=== PATIENT | male | born 1965 | race Two or more races ===

== ENCOUNTER 2016-11-06 22:12 | Emergency (ER) | payer OTHER ==
[~2016-11-06] VITALS: Ht 172.7 cm; Wt 124.7 kg
[2016-11-06] MEDS ORDERED: ATENOLOL25 MG ORAL (22:20)
[2016-11-06] MEDS ORDERED: ATORVASTATIN CA20 MG ORAL (22:20)
[2016-11-06] MEDS ORDERED: METFORMIN HCL500 M1 ORAL (22:21)
[2016-11-06] MEDS ORDERED: GLIMEPIRIDE1 MG ORAL (22:21)
[2016-11-06 22:26] VITALS: BP 162/82
[2016-11-06] MEDS ORDERED: Bactrim DS (160mg/800mg) tab ORAL ONE (22:45)
[2016-11-06] MEDS ORDERED: Norco 5mg/325mg tab ORAL ONE (22:45)
[2016-11-06] MEDS ORDERED: BACTRIM DS TAB1 EAC1 ORAL (23:15)
[2016-11-06] MEDS ORDERED: HYDROCODON-ACE1 EA15 ORAL (23:15)
--- NOTE | 2016-11-06 23:16 | Emergency Room Report ---
History of Present Illness General Chief Complaint: Skin Rash/Abscess Source: Patient Present Illness HPI Patient presents with an abscess to the right thigh for the last 4 days. Pain is 10 out of 10. Worse with palpation. There was small initially but got bigger every day. He tried to pop it was unsuccessful. No trauma. Never had this problem before. Allergies: Coded Allergies: No Known Allergies (Unverified , 11/06/16) Patient History Past Medical History: see triage record, old chart reviewed Past Surgical History: none Pertinent Family History: none Social History: Denies: drug use Immunizations: other Reviewed Nursing Documentation: PMH: Agreed, PSxH: Agreed Nursing Documentation-PMH Hx Hypertension: Yes - hyperlipidemia Hx Diabetes: Yes Review of Systems Eye: Denies: blurred vision, eye pain ENT: Denies: ear pain, nose congestion, throat swelling Respiratory: Denies: cough, shortness of breath Cardiovascular: Denies: chest pain, palpitations Gastrointestinal: Denies: abdominal pain, diarrhea, nausea, vomiting Musculoskeletal: Denies: back pain, joint pain Skin: Denies: rash Neurological: Denies: headache, numbness Endocrine: Denies: increased thirst, increased urine Hematologic/Lymphatic: Denies: easy bruising All Other Systems: negative except mentioned in HPI Physical Exam Vital Signs Date Time Temp Pulse Resp B/P Pulse Ox O2 Delivery O2 Flow Rate FiO2 11/06/16 22:15 97.5 85 18 162/82 96 Room Air vitals with hypertension Sp02 EP Interpretation: reviewed, normal General Appearance: well appearing, no apparent distress, alert, obese Head: normocephalic, atraumatic Eyes: bilateral eye EOMI, bilateral eye PERRL ENT: hearing grossly normal, normal pharynx Neck: full range of motion, supple, no meningismus Respiratory: chest non-tender, lungs clear, normal breath sounds Cardiovascular #1: regular rate, rhythm, no murmur Gastrointestinal: normal bowel sounds, non tender, no mass, no organomegaly, no bruit, non-distended, other - obese with umbilical hernia Musculoskeletal: back normal, gait/station normal, normal range of motion, other - right thigh:4cm fluctuant area with surrounding redness Neurologic: alert, oriented x3 Psychiatric: mood/affect normal Skin: warm/dry Procedures Incision and Drainage Incision and Drainage : Consent: Verbal Site: right [facility] Blade Size: 11 I & D Procedure: betadine prep, sterile drapes applied, sterile dressing applied, gauze wick placed Wound Location: lower extremity Irrigated w/ Saline (ccs): 1000 Anesthesia: 1% Lidocaine Volume Anesthetic (ccs): 5 Patient Tolerated: Well Complications: None Medical Decision Making Diagnostic Impression: Primary Impression: Abscess of right thigh ER Course Patient with an abscess in the right thigh. Most likely MRSA. It has been I&D intact. No evidence of systemic spread. We'll discharge home. Last Vital Signs Date Time Temp Pulse Resp B/P Pulse Ox O2 Delivery O2 Flow Rate FiO2 11/06/16 22:26 97.5 70 18 162/82 96 Room Air Status: improved Disposition: HOME, SELF-CARE Condition: Stable Scripts Hydrocodone/Acetaminophen 5-325* (HYDROCODONE/ACETAMINOPHEN 5-325*) 1 Each Tablet 1 TAB ORAL Q6H Y for For Pain, #30 TAB 0 Refills Prov: THELMA OCHOA M.D. 11/06/16 Trimethoprim/Sulfamethoxazole 160/800* (BACTRIM DS TABLET*) 1 Each Tablet 1 TAB ORAL Q12H, #14 TAB 0 Refills Prov: THELMA OCHOA M.D. 11/06/16 Referrals: [facility],REFERRING (PCP) Patient Instructions: Abscess Additional Instructions: Follow up with your doctor or return here in 2 days for recheck. Return sooner if worse. THELMA OCHOA M.D. Nov 06, 2016 23:16
[2016-11-06 23:34] VITALS: BP 158/84
[2016-11-06 23:35] VITALS: BP 158/84
== END 2016-11-06 23:54 | disposition home or self-care (01) ==
LOC: EMR 22:40
DX: L02.415 Cutaneous abscess of right lower limb (principal); I10 Essential (primary) hypertension; E11.9 Type 2 diabetes mellitus without complications
CPT/HCPCS: 10060

== ENCOUNTER 2016-11-08 12:12 | Emergency (ER) | payer OTHER ==
[~2016-11-08] VITALS: Ht 172.7 cm; Wt 124.7 kg
[~2016-11-08 12:12] MED LIST: ATENOLOL25 MG ORAL; ATORVASTATIN CA20 MG ORAL; BACTRIM DS TAB1 EAC1 ORAL; GLIMEPIRIDE1 MG ORAL; HYDROCODON-ACE1 EA15 ORAL; METFORMIN HCL500 M1 ORAL
[2016-11-08 12:15] VITALS: BP 143/86
--- NOTE | 2016-11-08 13:07 | Emergency Room Report ---
History of Present Illness General Chief Complaint: Wound Recheck/Suture Removal Present Illness HPI 51 YO male Pt. presents to the ED c/o localized tenderness 5/10 , swelling, and erythema of right posterior buttock, with wound packing that needs to be removed s/p I & D on the . Denies nausea vomiting fevers or chills. Patient states that the wound continues to drain. Patient states he's been taking his antibiotics as directed. Denies CP, Palpitations, LOC, AMS, dizziness , Changes in Vision, Sensation, paresthesias, or a sudden severe headache. Allergies: Coded Allergies: No Known Allergies (Unverified , 11/06/16) Patient History Past Medical History: see triage record Past Surgical History: none Pertinent Family History: none Immunizations: UTD Reviewed Nursing Documentation: PMH: Agreed, PSxH: Agreed Nursing Documentation-PMH Hx Hypertension: Yes - hyperlipidemia Hx Diabetes: Yes Review of Systems All Other Systems: negative except mentioned in HPI Physical Exam Vital Signs Date Time Temp Pulse Resp B/P Pulse Ox O2 Delivery O2 Flow Rate FiO2 11/08/16 12:14 97.3 82 20 143/86 97 Room Air Sp02 EP Interpretation: reviewed, normal General Appearance: no apparent distress, alert, GCS 15, non-toxic, obese Head: normocephalic, atraumatic Eyes: bilateral eye PERRL, bilateral eye normal inspection ENT: hearing grossly normal, normal pharynx, no angioedema, normal voice Neck: full range of motion, supple/symm/no masses Respiratory: chest non-tender, lungs clear, normal breath sounds, speaking full sentences Cardiovascular #1: regular rate, rhythm, no edema Musculoskeletal: back normal, gait/station normal, normal range of motion, non- tender, no calf tenderness Neurologic: alert, oriented x3, responsive, motor strength/tone normal, sensory intact, speech normal Psychiatric: judgement/insight normal, memory normal, mood/affect normal, no suicidal/homicidal ideation Skin: normal color, no rash, warm/dry, well hydrated, other - recently incised abscess of the posterior right thigh region approximately 2cm in diameter with mild erythema, and drainage noted , there is wound packing noted. Lymphatic: no adenopathy Medical Decision Making PA Attestation Dr. Pryor is my supervising Physician whom patient management has been discussed with. Diagnostic Impression: Primary Impression: Encounter for wound re-check ER Course Pt. presents to the ED c/o pain, swelling, and erythema of right posterior buttock, with wound packing that needs to be removed s/p I & D on the . Ddx considered but are not limited to cellulitis, abscess, cystic acne, necrotizing fasciitis, insect bite. Vital signs: are WNL, pt. is afebrile H&PE are most consistent with healing previously incised abscess. ORDERS: none required at this time, the diagnosis is clinical ED INTERVENTIONS: -wound packing removed. -RN re-packed wound and applied new sterile dressing. d/w pt. to continue taking po abx and to look for signs of infection . -Packing removal in 2 days. DISCHARGE: At this time pt. is stable for d/c to home. Will provide printed patient care instructions, and any necessary prescriptions. Care plan and follow up instructions have been discussed with the patient prior to discharge. Last Vital Signs Date Time Temp Pulse Resp B/P Pulse Ox O2 Delivery O2 Flow Rate FiO2 11/08/16 12:14 97.3 82 20 143/86 97 Room Air Disposition: HOME, SELF-CARE Condition: Stable [facility]errals: [facility],REFERRING (PCP) Patient Instructions: Wound Check Additional Instructions: Take previously prescribed medications as directed. Follow up with PCP in 3-5 days Return sooner to ED if new symptoms occur, or current symptoms become worse. Packing removal in 2 days. - Please note that this Emergency Department Report was dictated using [employer] machine feeder technology software, occasionally this can lead to erroneous entry secondary to interpretation by the dictation equipment. Loulou Mccormick Nov 08, 2016 13:07
[2016-11-08 13:15] VITALS: BP 143/86
== END 2016-11-08 13:15 | disposition home or self-care (01) ==
LOC: EMR 12:55
DX: Z48.00 Encounter for change or removal of nonsurgical wound dressing (principal); L02.415 Cutaneous abscess of right lower limb; I10 Essential (primary) hypertension; E11.9 Type 2 diabetes mellitus without complications; E78.5 Hyperlipidemia, unspecified
CPT/HCPCS: 99281

== ENCOUNTER 2018-12-24 12:03 | Emergency (ER) | payer OTHER ==
[~2018-12-24] VITALS: Ht 170.2 cm; Wt 127.0 kg
--- NOTE | 2018-12-24 12:30 | NUR ---
ED Nurse Note: Patient walked into ED c/o his tongue bite about 2 weeks ago. patient is concerned that it does not seem to heal. patient wants to get checked. Patient is alert awake oriented x4 ambulatory.
[2018-12-24] MEDS ORDERED: LD2JL30 TOPIC (12:41)
[2018-12-24 12:42] VITALS: BP 132/91
--- NOTE | 2018-12-24 12:42 | Emergency Room Report ---
History of Present Illness General Chief Complaint: Pain Source: Patient Present Illness HPI 53-year-old male patient presents ER complaining of "I bit my tongue" 2 weeks ago. Reports accidentally bit his tongue, states bleeding initially. Reports has not bled since that time. Reports still painful. States he came to the ER to make sure it was not effective. Denies fever, chest pain or shortness of breath, vomiting. Denies other aggravating or relieving factors. Allergies: Coded Allergies: No Known Allergies (Unverified , 11/06/16) Patient History Past Medical History: see triage record Reviewed Nursing Documentation: PMH: Agreed; PSxH: Agreed Nursing Documentation-PMH Past Medical History: No History, Except For Hx Hypertension: Yes - hyperlipidemia Hx Diabetes: Yes Review of Systems All Other Systems: negative except mentioned in HPI Physical Exam Vital Signs Date Time Temp Pulse Resp B/P (MAP) Pulse Ox O2 Delivery O2 Flow Rate FiO2 12/24/18 12:22 98.1 108 20 134/95 93 Room Air Sp02 EP Interpretation: reviewed, normal General Appearance: well appearing, no apparent distress, alert, GCS 15, non- toxic Head: normocephalic, atraumatic Eyes: bilateral eye normal inspection, bilateral eye PERRL ENT: hearing grossly normal, normal pharynx, no angioedema, normal voice, uvula midline, moist mucus membranes, other - Left lateral tongue: Superficial avulsed wound consistent with mechanical trauma, no laceration, no large tongue deformity Neck: full range of motion Respiratory: lungs clear, normal breath sounds, no rhonchi, no respiratory distress, no accessory muscle use, no wheezing, speaking full sentences Cardiovascular #1: regular rate, rhythm, no edema Musculoskeletal: back normal, digits/nails normal, gait/station normal, normal range of motion, non-tender Neurologic: alert, oriented x3, responsive, motor strength/tone normal, sensory intact Psychiatric: mood/affect normal Medical Decision Making PA Attestation Dr. Palacio is my supervising Physician whom patient management has been discussed with. Diagnostic Impression: Primary Impression: Tongue injury ER Course Pt. presents to the ED c/o bite on tongue. Ddx considered but are not limited to mechanical trauma, laceration, cellulitis , abscess, abrasion. Vital signs: are WNL, pt. is afebrile ER COURSE: Does not require acute intervention ER. No laceration requiring repair. Wound is 2 weeks old. Superficial layer of skin removed. No surrounding erythema or edema, no signs of infection, no drainage. No active bleeding. Will provide patient with viscous lidocaine jelly to apply for pain. Follow-up with ENT or oral surgeon. ER precautions given. DISCHARGE: At this time pt is stable for d/c to home. Patient is resting comfortably, in no acute distress, nontoxic appearing, talking without difficulty. Patient to take medications as instructed Will provide with patient care instructions and any necessary prescriptions. Care plan and follow-up instructions provided. Patient instructed to follow-up with primary care provider in 3 - 5 days. Patient questions asked and answered. Patient reports understanding and agreement to treatment plan. ER precautions given. Patient instructed to return to ER immediately for any new or worsening of symptoms including but not limited to increasing SOB, persistent fever, chest pain, intractable vomiting. - Please note that this Emergency Department Report was dictated using [employer] roll operator technology software, occasionally this can lead to erroneous entry secondary to interpretation by the dictation equipment. Last Vital Signs Date Time Temp Pulse Resp B/P (MAP) Pulse Ox O2 Delivery O2 Flow Rate FiO2 12/24/18 12:22 98.1 108 20 134/95 93 Room Air Status: improved Disposition: HOME, SELF-CARE Condition: Stable Scripts Lidocaine HCL 2% Jelly* (Lidocaine Jelly 2%*) 5 Ml Jel.pf.letty 5 ML TOPIC DAILY for 7 Days, #5 ML Prov: Kristopher Olson 12/24/18 Patient Instructions: Tongue Laceration, [id number] Additional Instructions: Followup with primary care provider in 3 -5 days. Discussed referral to ENT specialist. Take medications as directed. Patient questions asked and answered. ER precautions given, patient instructed to return to ER immediately for any new or worsening of symptoms. Kristopher Olson Dec 24, 2018 12:42
[2018-12-24 12:57] VITALS: BP 132/91
--- NOTE | 2018-12-24 12:58 | NUR ---
ER DISCHARGE NOTE: Patient is cleared to be discharged per ERMD, pt is aox4, on room air, with stable vital signs. pt was given dc and prescription instructions, pt was able to verbalize understanding, pt id band removed without complications. pt is able to ambulate with steady gait. pt took all belongings.
== END 2018-12-24 12:58 | disposition home or self-care (01) ==
LOC: EMR 12:48
DX: S01.552A Open bite of oral cavity, initial encounter (principal); X58.XXXA Exposure to other specified factors, initial encounter; Y92.9 Unspecified place or not applicable; I10 Essential (primary) hypertension; E78.5 Hyperlipidemia, unspecified; E11.9 Type 2 diabetes mellitus without complications
CPT/HCPCS: 99282

== ENCOUNTER 2019-02-13 15:28 | Emergency (ER) | payer OTHER ==
[~2019-02-13] VITALS: Ht 170.2 cm; Wt 122.5 kg
[~2019-02-13 15:28] MED LIST changes: +LD2JL30 TOPIC
[2019-02-13 15:33] VITALS: BP 115/81
[2019-02-13] MEDS ORDERED: BACTRIM DS TAB1 EAC1 ORAL (17:14)
--- NOTE | 2019-02-13 17:15 | Emergency Room Report ---
History of Present Illness General Chief Complaint: Male Urogenital Problems Source: Patient Present Illness HPI This is a 53-year-old male with a history of diabetes, complains of a lump on his right scrotal sac. With some drainage. He notices about one week ago. Minimal pain. No exacerbating or alleviating factor. He denies any fever or any systemic signs or symptoms. Allergies: Coded Allergies: No Known Allergies (Unverified , 11/06/16) Patient History Past Medical History: DM Past Surgical History: none Pertinent Family History: DM Nursing Documentation-PMH Past Medical History: No History, Except For Hx Hypertension: Yes Hx Diabetes: Yes Review of Systems All Other Systems: negative except mentioned in HPI Physical Exam Vital Signs Date Time Temp Pulse Resp B/P (MAP) Pulse Ox O2 Delivery O2 Flow Rate FiO2 02/13/19 15:33 98.6 105 18 115/81 Room Air General Appearance: well appearing, no apparent distress Head: normocephalic, atraumatic ENT: hearing grossly normal, normal voice Neck: full range of motion, supple Respiratory: no respiratory distress, speaking full sentences Genitourinary: other - 3x2cm indurated lesion on right scrotal sac. minimal purulent drainage. b/l descended testicles Musculoskeletal: no calf tenderness Neurologic: alert, normal gait Psychiatric: mood/affect normal Skin: no rash Procedures Incision and Drainage Incision and Drainage : Consent: Verbal Blade Size: 11 I & D Procedure: betadine prep Wound Location: other - right scrotal sac Wound's Depth, Shape: superficial Wound Length (cm): 1 Wound Explored: clean Anesthesia: 1% Lidocaine Volume Anesthetic (ccs): 1 Patient Tolerated: Well Complications: None Medical Decision Making Diagnostic Impression: Primary Impression: Abscess ER Course This is a 53-year-old male was particularly concerned about possibility of strops's, sepsis, Forner's gangrene, necrotizing fasciitis. The patient has had multiple bedside evaluations. The patient has had drainage from the incision and drainage. Patient will be started on antibodies. A very concerned about surrounding cellulitis. The patient remains nontoxic. The patient remains afebrile.. Last Vital Signs Date Time Temp Pulse Resp B/P (MAP) Pulse Ox O2 Delivery O2 Flow Rate FiO2 02/13/19 15:33 98.6 105 18 115/81 (92) Room Air Status: unchanged Disposition: HOME, SELF-CARE Condition: Stable Scripts Trimethoprim/Sulfamethoxazole 160/800* (BACTRIM DS TABLET*) 1 Each Tablet 1 TAB ORAL Q12H, #14 TAB 0 Refills Prov: HMAMAD GAONA 02/13/19 Patient Instructions: Abscess, [id number] HAMMAD GAONA February 13, 2019 17:15
[2019-02-13 17:19] VITALS: BP 122/73
== END 2019-02-13 17:19 | disposition home or self-care (01) ==
LOC: EMR 17:07
DX: N49.2 Inflammatory disorders of scrotum (principal); I10 Essential (primary) hypertension; E11.9 Type 2 diabetes mellitus without complications
CPT/HCPCS: 55100; 99283; Z7502